=== PATIENT | male | born 1940 | race Two or more races ===

== ENCOUNTER 2017-02-17 01:52 | Emergency (ER) | payer OTHER ==
[~2017-02-17] VITALS: Ht 167.6 cm; Wt 84.0 kg
[2017-02-17] MEDS ORDERED: SODIUM CHLORIDE 0.9% 1,000 ML IV ONE (02:36)
[2017-02-17] MEDS ORDERED: CHLORPROMAZINE HCL 25MG/1ML AMP IM ONE (02:45)
[2017-02-17 02:54] LABS: BASOPHILS % 0.2 % (0.0-2.0); EOSINOPHILS % 0.7 % (0.0-5.0); HEMATOCRIT. 29.7 % (42.0-52.0); HEMOGLOBIN. 10.1 g/dL (14.0-18.0); LYMPHOCYTES % 39.4 % (20.0-50.0); MEAN CORPUSCULAR HEMOGLOBIN 34.5 pg (28.0-32.0); MEAN CORPUSCULAR VOLUME 101.4 fL (80.0-94.0); MEAN PLATELET VOLUME 7.8 fl (7.4-10.4); MONOCYTES % 2.9 % (2.0-8.0); NEUTROPHILS % 56.8 % (40.0-76.0); RED BLOOD CELL COUNT 2.93 mill/uL (4.7-6.1); RED CELL DISTRIBUTION WIDTH 17.1 % (11.6-14.6)
[2017-02-17 03:05] LABS: PLATELET 52 x1000/uL (130-400)
[2017-02-17 03:10] LABS: CARBON DIOXIDE 26 mEq/L (21-32); CHLORIDE 108 mEq/L (98-107); TROPONIN I < 0.02 ng/mL (0.00-0.04)
[2017-02-17 04:45] VITALS: BP 141/68
== END 2017-02-17 04:50 | disposition home or self-care (01) ==
LOC: ER 01:52
DX: R55 Syncope and collapse (principal); K59.00 Constipation, unspecified; G89.18 Other acute postprocedural pain; R06.6 Hiccough; E03.9 Hypothyroidism, unspecified
CPT/HCPCS: 36415; 71010; 80048; 84484; 85025; 93005; 96361; 96372; 99285; J3230; J7030